=== PATIENT | female | born 1945 | race Caucasian/White ===

== ENCOUNTER → 2024-03-22 | Outpatient (CLI) | payer OTHER | LOC: M EKG 11:03 | PROVIDERS: ATTEND Internal Medicine Cardiovascular Disease | DX: I48.91 Unspecified atrial fibrillation (principal) ==

== ENCOUNTER → 2024-03-23 | Outpatient (CLI) | payer OTHER ==
[2024-03-23 09:29] LABS: HEMATOCRIT 43.8 % (36.0-47.0); HEMOGLOBIN 14.5 g/dl (12.0-15.5); MEAN CORPUSCULAR HEMOGLOBIN 32.1 pg (27.0-33.0); MEAN CORPUSCULAR HGB CONC 33.1 g/dl (32.0-36.5); MEAN CORPUSCULAR VOLUME 96.9 fl (80.0-96.0); PLATELET COUNT, AUTOMATED 169 10^3/uL (150-450); RED BLOOD COUNT 4.52 10^6/uL (4.00-5.40); WHITE BLOOD COUNT 6.2 10^3/uL (4.0-10.0)
[2024-03-23 09:52] LABS: ALBUMIN 3.5 G/DL (3.2-5.2); ALKALINE PHOSPHATASE 112 U/L (46-116); ALT/SGPT 39 U/L (7.0-40); AST/SGOT 38 U/L (<34); BILIRUBIN,TOTAL 1.9 MG/DL (0.3-1.2); BLOOD UREA NITROGEN 17 MG/DL (9-23); CALCIUM LEVEL 9.1 MG/DL (8.3-10.6); CARBON DIOXIDE LEVEL 31 MMOL/L (20-31); CHLORIDE LEVEL 108 MMOL/L (98-107); CHOLESTEROL LEVEL 152 MG/DL (<200); CHOLESTEROL RISK RATIO 2.71 (<5); CREATININE FOR GFR 0.69 MG/DL (0.55-1.30); GLOMERULAR FILTRATION RATE > 60.0 (>39); GLUCOSE, FASTING 90 MG/DL (74-106); HDL CHOLESTEROL 55.9 MG/DL (>40); LDL CHOLESTEROL 80.7 MG/DL (<100); NON-HDL-C 96.1 MG/DL; POTASSIUM SERUM 3.4 MMOL/L (3.5-5.1); SODIUM LEVEL 140 MMOL/L (136-145); TOTAL PROTEIN 6.2 G/DL (5.7-8.2); TRIGLYCERIDES LEVEL 77 MG/DL (<150)
[2024-03-23 09:54] LABS: THYROID STIMULATING HORMONE 1.077 uIU/ML (0.55-4.78)
== END ==
LOC: M LAB 08:52 → M RAD 08:52
PROVIDERS: ATTEND Internal Medicine Cardiovascular Disease
DX: I48.91 Unspecified atrial fibrillation (principal); R06.02 Shortness of breath; R60.0 Localized edema; E04.9 Nontoxic goiter, unspecified; R94.31 Abnormal electrocardiogram [ECG] [EKG]; E78.00 Pure hypercholesterolemia, unspecified

== ENCOUNTER → 2024-04-06 | Outpatient (CLI) | payer OTHER | LOC: M PLAIMG 11:03 | PROVIDERS: ATTEND Internal Medicine Cardiovascular Disease | DX: I48.91 Unspecified atrial fibrillation (principal); R94.31 Abnormal electrocardiogram [ECG] [EKG]; I27.20 Pulmonary hypertension, unspecified; I08.1 Rheumatic disorders of both mitral and tricuspid valves ==

== ENCOUNTER → 2024-04-09 | Outpatient (CLI) | payer OTHER ==
[2024-04-09 14:08] LABS: ALBUMIN 3.5 G/DL (3.2-5.2); BLOOD UREA NITROGEN 19 MG/DL (9-23); CALCIUM LEVEL 9.7 MG/DL (8.3-10.6); CARBON DIOXIDE LEVEL 29 MMOL/L (20-31); CHLORIDE LEVEL 110 MMOL/L (98-107); CREATININE FOR GFR 0.77 MG/DL (0.55-1.30); GLOMERULAR FILTRATION RATE > 60.0 (>39); GLUCOSE, FASTING 70 MG/DL (74-106); PHOSPHORUS LEVEL 3.9 MG/DL (2.4-5.1); POTASSIUM SERUM 4.2 MMOL/L (3.5-5.1); SODIUM LEVEL 144 MMOL/L (136-145)
== END ==
LOC: M LAB 12:59
PROVIDERS: ATTEND Internal Medicine Cardiovascular Disease
DX: I11.0 Hypertensive heart disease with heart failure (principal); E87.6 Hypokalemia; R06.02 Shortness of breath; R60.0 Localized edema; I50.9 Heart failure, unspecified

== ENCOUNTER → 2024-05-07 | Outpatient (CLI) | payer OTHER | LOC: M RAD 09:07 | PROVIDERS: ATTEND Internal Medicine Cardiovascular Disease | DX: I71.40 Abdominal aortic aneurysm, without rupture, unspecified (principal) ==